=== PATIENT | male | born 1945 | race Hispanic/Latino ===

== ENCOUNTER → 2020-10-05 | Outpatient (CLI) | payer MEDICARE ==
[~2020-10-05] MED LIST: BACTRIM DS TAB1 EACH PO; LEVEMIR 3M100 UNITS/ SQ; LOPRESSOR100 MG PO; MYFORTIC360 MG PO; NEORAL25 MG PO; PREDNISONE5 MG PO; PROSCAR5 MG PO
== END ==
LOC: NM 08:21
PROVIDERS: ATTEND Urology
DX: M54.12 Radiculopathy, cervical region (principal); M54.2 Cervicalgia; M54.41 Lumbago with sciatica, right side; M54.42 Lumbago with sciatica, left side; R41.3 Other amnesia; C61 Malignant neoplasm of prostate
CPT/HCPCS: 71046; 74176; 78306; A9503

== ENCOUNTER → 2020-11-09 | Outpatient (CLI) | payer MEDICARE ==
[~2020-11-09] MED LIST changes: +GADOBENATE DIMEGLUMINE 1 ML IV ONE; +SODIUM CHLORIDE 0.9% 50ML 50 ML ONE
== END ==
LOC: MRI 10:30
PROVIDERS: ATTEND Urology
DX: C61 Malignant neoplasm of prostate (principal)
CPT/HCPCS: 74183

== ENCOUNTER 2020-12-07 06:00 | Inpatient (IN) | payer MEDICARE ==
[2020-12-06 10:09] LABS: ANION GAP 14.9 mmol/L (8-16); CALCIUM 10.2 mg/dL (8.4-10.2); POTASSIUM 4.9 mmol/L (3.5-5.1)
[2020-12-06 10:14] LABS: BASOPHILS % 0.1 % (0.0-1.0); EOSINOPHILS # (AUTO) 0.1 (0.0-0.4); EOSINOPHILS % 0.8 % (0.0-6.0); HEMATOCRIT 39.6 % (38.2-49.6); HEMOGLOBIN 12.1 g/dL (14.0-18.0); LYMPHOCYTES % 11.4 % (18.0-39.1); MEAN CORPUSCULAR HEMOGLOBIN 27.8 pg (28-32); MEAN CORPUSCULAR HGB CONC 30.6 g/dL (31-35); MEAN CORPUSCULAR VOLUME 90.8 fL (81-99); NEUTROPHILS # (AUTO) 6.7 (2.1-6.9); NEUTROPHILS % 76.4 % (38.7-80.0); PLATELET COUNT 203 x10e3/uL (140-360); RED BLOOD COUNT 4.36 x10e6/uL (4.3-5.7); RED CELL DISTRIBUTION WIDTH 13.8 % (11.7-14.4)
[2020-12-06 10:36] LABS: PROTHROMBIN TIME 13.8 seconds (11.9-14.5)
[2020-12-06 10:37] LABS: PARTIAL THROMBOPLASTIN TIME 30.2 seconds (23.8-35.5)
[~2020-12-07 06:00] MED LIST changes: +AMBIEN10 MG PO; +CITALOPRAM HBR20 MG PO; +FINASTERIDE5 MG PO; -GADOBENATE DIMEGLUMINE 1 ML IV ONE; +IMODIUM A-D2 M2 PO; +LISINOPRIL5 MG PO; +MYCOPHENOLATE500 MG; +MYCOPHENOLIC A360 MG; +PRAVASTATIN SOD10 MG; -SODIUM CHLORIDE 0.9% 50ML 50 ML ONE
[2020-12-07] MEDS ORDERED: LANTUS 3ML100 UNITS/ SQ (06:03)
[2020-12-07] MEDS ORDERED: SODIUM CHLORIDE 0.9% 50ML 50 ML ONE (06:18)
[2020-12-07] MEDS ORDERED: SODIUM CHLORIDE 0.9% 1000ML 1,000 ML ONE (06:18)
[2020-12-07] MEDS ORDERED: CEFTRIAXONE 1 GM VIAL ONE (06:18)
[2020-12-07] MEDS ORDERED: GENTAMICIN 80MG/NS 100 ML 100 ML IV ONE (06:18)
[2020-12-07] MEDS ORDERED: IOPAMIDOL 300MG/ML 50ML INFUS..BTL IV ONE (06:47)
[2020-12-07] MEDS ORDERED: B&O 60MG R/S 60 MG SUPP PR ONE (06:48)
[2020-12-07] MEDS ORDERED: B&O 60MG R/S 60 MG SUPP PR PRN (08:45)
[2020-12-07] MEDS ORDERED: ONDANSETRON HCL INJ 2MG/ML 2ML 2 MG/ML VIAL IV PRN (08:45)
[2020-12-07] MEDS ORDERED: PHENAZOPYRIDINE HCL 100 MG TAB PO PRN (08:45)
[2020-12-07] MEDS ORDERED: DIPHENHYDRAMINE HCL 25 MG CAP PO PRN (08:45)
[2020-12-07] MEDS ORDERED: SODIUM CHLORIDE 0.9% 1000ML 1,000 ML IV SCH (08:45)
[2020-12-07] MEDS: DOCUSATE SODIUM 100 MG CAP PO SCH ×2 (09:00→16:34)
[2020-12-07 09:08] LABS: BASOPHILS % 0.2 % (0.0-1.0); EOSINOPHILS # (AUTO) 0.1 (0.0-0.4); EOSINOPHILS % 0.8 % (0.0-6.0); HEMATOCRIT 39.7 % (38.2-49.6); LYMPHOCYTES # (AUTO) 0.7 (1.0-3.2); LYMPHOCYTES % 8.1 % (18.0-39.1); MEAN CORPUSCULAR HEMOGLOBIN 27.4 pg (28-32); MEAN CORPUSCULAR HGB CONC 30.2 g/dL (31-35); MEAN CORPUSCULAR VOLUME 90.6 fL (81-99); MONOCYTES # (AUTO) 0.5 (0.2-0.8); MONOCYTES % 6.4 % (4.4-11.3); NEUTROPHILS # (AUTO) 7.1 (2.1-6.9); NEUTROPHILS % 83.9 % (38.7-80.0); PLATELET COUNT 165 x10e3/uL (140-360); RED BLOOD COUNT 4.38 x10e6/uL (4.3-5.7); RED CELL DISTRIBUTION WIDTH 13.7 % (11.7-14.4)
[2020-12-07] MEDS ORDERED: FENTANYL CITRATE/PF 100MCG/2 ML INJ ONE ×2 (09:14→12:06)
[2020-12-07 09:26] LABS: ANION GAP 13.3 mmol/L (8-16); CALCIUM 9.1 mg/dL (8.4-10.2); CREATININE, SERUM 0.97 mg/dL (0.72-1.25); POTASSIUM 5.3 mmol/L (3.5-5.1)
[2020-12-07] MEDS ORDERED: SOD POLYSTYRENE SULFONATE SUSP 15 GM/60 ML BTL PO STA (10:36)
[2020-12-07] MEDS ORDERED: LACTULOSE SYRUP 20 GM/30 ML UDC PO ONE (10:45)
[2020-12-07] MEDS ORDERED: MAGNESIUM SULFATE 2GM/50ML 50 ML IV ONE (11:45)
[2020-12-07] MEDS ORDERED: ONDANSETRON HCL INJ 2MG/ML 2ML 2 MG/ML VIAL ONE (12:59)
[2020-12-07] MEDS ORDERED: PROPOFOL IV EMULSION 10 MG/ML 20 ML VIAL ONE (12:59)
[2020-12-07] MEDS ORDERED: POVIDONE IODINE 0.05% 0.05 % ML PO ONE (12:59)
[2020-12-07] MEDS ORDERED: DEXAMETHASONE SOD PHOS INJ 4 MG/ML VIAL ONE (12:59)
[2020-12-07] MEDS ORDERED: LIDOCAINE HCL 2% LOCAL INJ 5 ML SDV VIAL INJ ONE (12:59)
[2020-12-07] MEDS ORDERED: SEVOFLURANE INHAL SOLN 250 ML PEN BTL ONE (12:59)
[2020-12-07 13:44] VITALS: BP 150/74
[2020-12-07 13:45] VITALS: BP 150/74
[2020-12-07 14:13] VITALS: BP 150/74
[2020-12-07] MEDS ORDERED: DEXTROSE 50% SYRINGE 50 ML IV PRN (15:00)
[2020-12-07] MEDS: SODIUM BICARBONATE 8.4% SYRING 150 ML in DEXTROSE 5% 1,000 ML IV SCH (15:33)
[2020-12-07 15:47] VITALS: BP 153/73
[2020-12-07] MEDS: INSULIN LISPRO 100 UNIT/1 ML 3ML VIAL SQ SCH ×2 (16:30→21:29)
[2020-12-07] MEDS: METOPROLOL TARTRATE 50 MG TAB PO SCH (16:35)
[2020-12-07] MEDS: MYCOPHENOLATE MOFETIL 250 MG CAP PO SCH (16:35)
[2020-12-07] MEDS ORDERED: METOPROLOL TARTRATE 100 MG PO SCH (17:00)
[2020-12-07] MEDS: CYCLOSPORINE 25 MG CAP PO SCH (17:15)
[2020-12-07] MEDS: LOPERAMIDE HCL 2 MG CAP PO PRN ×2 (18:14→21:42)
[2020-12-07 20:00] VITALS: BP 162/83
[2020-12-07 20:51] VITALS: BP 162/83
[2020-12-07] MEDS ORDERED: ZOLPIDEM TARTRATE 10 MG TAB PO PRN (21:00)
[2020-12-07] MEDS: LISINOPRIL 2.5 MG TAB PO SCH (21:13)
[2020-12-08] VITALS (8 sets, daily range): BP systolic 118–139; BP diastolic 53–87
[2020-12-08] MEDS: SODIUM BICARBONATE 8.4% SYRING 150 ML in DEXTROSE 5% 1,000 ML IV SCH ×2 (03:43→16:19)
[2020-12-08 05:16] LABS: BASOPHILS % 0.1 % (0.0-1.0); HEMATOCRIT 29.9 % (38.2-49.6); HEMOGLOBIN 9.4 g/dL (14.0-18.0); LYMPHOCYTES # (AUTO) 0.9 (1.0-3.2); LYMPHOCYTES % 10.1 % (18.0-39.1); MEAN CORPUSCULAR HGB CONC 31.4 g/dL (31-35); MONOCYTES % 11.2 % (4.4-11.3); NEUTROPHILS # (AUTO) 6.6 (2.1-6.9); NEUTROPHILS % 78.2 % (38.7-80.0); PLATELET COUNT 124 x10e3/uL (140-360); RED BLOOD COUNT 3.36 x10e6/uL (4.3-5.7)
[2020-12-08] MEDS: CYCLOSPORINE 25 MG CAP PO SCH ×4 (06:00→18:19)
[2020-12-08] MEDS: MYCOPHENOLATE MOFETIL 250 MG CAP PO SCH ×2 (06:28→18:00)
[2020-12-08] MEDS: LOPERAMIDE HCL 2 MG CAP PO PRN (06:44)
[2020-12-08] MEDS: INSULIN LISPRO 100 UNIT/1 ML 3ML VIAL SQ SCH ×4 (07:30→22:08)
[2020-12-08 07:52] LABS: ALBUMIN 3.2 g/dL (3.5-5.0); ALBUMIN/GLOBULIN RATIO 1.2 (0.8-2.0); ANION GAP 10.8 mmol/L (8-16); CALCIUM 8.9 mg/dL (8.4-10.2); CREATININE, SERUM 0.81 mg/dL (0.72-1.25); POTASSIUM 3.8 mmol/L (3.5-5.1)
[2020-12-08] MEDS: METOPROLOL TARTRATE 50 MG TAB PO SCH ×2 (08:35→16:34)
[2020-12-08] MEDS: DOCUSATE SODIUM 100 MG CAP PO SCH ×2 (08:35→16:34)
[2020-12-08] MEDS: CEFTRIAXONE 1 GM in SODIUM CHLORIDE 0.9% 50ML 50 ML IV SCH (09:12)
[2020-12-08] MEDS: FINASTERIDE 5 MG TAB PO SCH (09:12)
[2020-12-08] MEDS: LISINOPRIL 2.5 MG TAB PO SCH (21:24)
[2020-12-09 00:45] VITALS: BP 146/76
[2020-12-09] MEDS: SODIUM BICARBONATE 8.4% SYRING 150 ML in DEXTROSE 5% 1,000 ML IV SCH ×2 (03:09→17:23)
[2020-12-09 04:00] VITALS: BP 129/57
[2020-12-09 05:38] LABS: BASOPHILS % 0.2 % (0.0-1.0); EOSINOPHILS % 0.2 % (0.0-6.0); HEMATOCRIT 33.1 % (38.2-49.6); HEMOGLOBIN 10.1 g/dL (14.0-18.0); LYMPHOCYTES # (AUTO) 1.1 (1.0-3.2); LYMPHOCYTES % 11.5 % (18.0-39.1); MEAN CORPUSCULAR HEMOGLOBIN 27.4 pg (28-32); MEAN CORPUSCULAR HGB CONC 30.5 g/dL (31-35); MEAN CORPUSCULAR VOLUME 89.9 fL (81-99); MONOCYTES # (AUTO) 1.2 (0.2-0.8); MONOCYTES % 12.9 % (4.4-11.3); NEUTROPHILS # (AUTO) 6.9 (2.1-6.9); NEUTROPHILS % 74.8 % (38.7-80.0); PLATELET COUNT 121 x10e3/uL (140-360); RED BLOOD COUNT 3.68 x10e6/uL (4.3-5.7); RED CELL DISTRIBUTION WIDTH 13.8 % (11.7-14.4)
[2020-12-09] MEDS: MYCOPHENOLATE MOFETIL 250 MG CAP PO SCH (05:59)
[2020-12-09] MEDS: CYCLOSPORINE 25 MG CAP PO SCH (06:00)
[2020-12-09 06:05] LABS: ALBUMIN 2.9 g/dL (3.5-5.0); ALBUMIN/GLOBULIN RATIO 1.2 (0.8-2.0); ANION GAP 12.6 mmol/L (8-16); CALCIUM 8.6 mg/dL (8.4-10.2); CREATININE, SERUM 0.86 mg/dL (0.72-1.25); POTASSIUM 3.6 mmol/L (3.5-5.1)
[2020-12-09 07:41] VITALS: BP 141/69
[2020-12-09 07:53] VITALS: BP 141/69
[2020-12-09] MEDS: DOCUSATE SODIUM 100 MG CAP PO SCH ×2 (09:00→17:00)
[2020-12-09] MEDS: FINASTERIDE 5 MG TAB PO SCH (09:44)
[2020-12-09] MEDS: CEFTRIAXONE 1 GM in SODIUM CHLORIDE 0.9% 50ML 50 ML IV SCH (09:44)
[2020-12-09] MEDS: METOPROLOL TARTRATE 50 MG TAB PO SCH ×2 (09:44→17:23)
[2020-12-09] MEDS: INSULIN LISPRO 100 UNIT/1 ML 3ML VIAL SQ SCH ×3 (10:12→17:56)
[2020-12-09] MEDS ORDERED: MAGNESIUM SULFATE 2GM/50ML 50 ML IV ONE (10:30)
[2020-12-09 11:53] VITALS: BP 157/67
[2020-12-09] MEDS ORDERED: SODIUM CHLORIDE 0.9% 50ML 50 ML ONE (12:23)
[2020-12-09] MEDS ORDERED: ONDANSETRON HCL 4 MG ORAL DISINTEGRATING TAB PO PRN (12:45)
[2020-12-09] MEDS: ACETAMINOPHEN/CODEINE 300MG - 30MG TAB PO PRN ×2 (13:30→13:45)
[2020-12-09 15:56] VITALS: BP 130/64
[2020-12-09] MEDS ORDERED: ELIQUIS5 MG PO (18:14)
[2020-12-09] MEDS ORDERED: CEFUROXIME250 MG PO (18:15)
== END 2020-12-09 18:50 | disposition home or self-care (01) | DRG 713 ==
LOC: OR 06:00 → PACU V 08:34 → MED/SURG 13:18
PROVIDERS: ADMIT Internal Medicine; ATTEND Internal Medicine
PROC: BT141ZZ Fluoroscopy of Kidneys, Ureters and Bladder using Low Osmolar Contrast (ICD-10-PCS; 2020-12-07)
PROC: 0T7D8ZZ Dilation of Urethra, Via Natural or Artificial Opening Endoscopic (ICD-10-PCS; principal; 2020-12-07 07:00)
PROC: 0V508ZZ Destruction of Prostate, Via Natural or Artificial Opening Endoscopic (ICD-10-PCS; 2020-12-07 07:00)
DX: N40.1 Benign prostatic hyperplasia with lower urinary tract symptoms (principal); N13.8 Other obstructive and reflux uropathy; Z94.0 Kidney transplant status; I48.20 Chronic atrial fibrillation, unspecified; I13.0 Hypertensive heart and chronic kidney disease with heart failure and stage 1 through stage 4 chronic kidney disease, or unspecified chronic kidney disease; I50.32 Chronic diastolic (congestive) heart failure; C61 Malignant neoplasm of prostate; R39.14 Feeling of incomplete bladder emptying; N40.3 Nodular prostate with lower urinary tract symptoms; N35.919 Unspecified urethral stricture, male, unspecified site; E87.5 Hyperkalemia; E11.22 Type 2 diabetes mellitus with diabetic chronic kidney disease; N18.2 Chronic kidney disease, stage 2 (mild)
CPT/HCPCS: 36415; 74420; 80048; 80053; 82948; 83735; 85025; 85610; 85730; 93005; C1758; J0696; J1100; J1580; J2001; J2405; J3010; J3475; J7030; J7070